=== PATIENT | male | born 2000 | race Caucasian/White ===

== ENCOUNTER 2018-12-26 22:58 | Day surgery (SDC) | payer OTHER ==
[2018-12-26] MEDS ORDERED: Sodium Chloride 0.9% 10 ML SDV IV PRN (23:10)
[2018-12-26] MEDS ORDERED: Sodium Chloride 0.9% 2.5 ML Syringe FLUSH PRN (23:10)
[2018-12-26] MEDS ORDERED: Sodium Chloride 0.9% 10 ML Syringe FLUSH PRN (23:10)
[2018-12-26] MEDS ORDERED: Lactated Ringers 1,000 ML IV ONE (23:13)
[2018-12-26] MEDS ORDERED: Lactated Ringers 1,000 ML IV SCH (23:15)
--- NOTE | 2018-12-26 23:24 | PCM.HP.2 ---
H&P History of Present Illness - General Date of Service: 12/26/18 Admit Problem/Dx: Admission Diagnosis/Problem Admission Diagnosis/Problem Appendicitis Source of Information: Patient History Limitations: Reports: No Limitations - History of Present Illness Initial Comments - Free Text/Narative: Patient is a 18 year old male who presents with acute appendicitis. He developed an "upset stomach" yesterday morning. This progressed and became more painful. He had nausea but no vomiting. He also endorsed chills. He presented to an OSH and was found to have a leukocytosis and CT scan showed acute appendicitis with errol-appendical inflammation. - Related Data Allergies/Adverse Reactions: Allergies Allergy/AdvReac Type Severity Reaction Status Date / Time ethinyl estradiol Allergy Other Verified 12/26/18 23:10 [From Seasonale ()] levonorgestrel Allergy Other Verified 12/26/18 23:10 [From Seasonale ()] Home Medications: Home Meds . [No Known Home Meds] 12/26/18 [History] Past Medical History - Past Health History Medical/Surgical History: Denies Medical/Surgical History Social & Family History - Family History Family Medical History: Noncontributory - Tobacco Use Smoking Status *Q: Never Smoker - Alcohol Use Alcohol Use History: Yes Alcohol Use Frequency: Rarely - Recreational Drug Use Recreational Drug Use: No H&P Review of Systems - Review of Systems: Review Of Systems: ROS reveals no pertinent complaints other than HPI. Exam - Exam Exam: See Below - Exam General: Alert, Oriented, Cooperative, Mild Distress HEENT: Conjunctiva Clear, Mucosa Moist & Vandiver, Posterior Pharynx Clear Neck: Supple Lungs: Clear to Auscultation, Normal Respiratory Effort Cardiovascular: Regular Rate, Regular Rhythm GI/Abdominal Exam: Soft, No Distention, No Mass, Tender (RLQ) Back Exam: Normal Inspection Extremities: Normal Inspection - Problem List (1) Acute appendicitis SNOMED Code(s): 51635942 ICD Code: K35.80 - UNSPECIFIED ACUTE APPENDICITIS Status: Acute Current Visit: Yes Problem List Initiated/Reviewed/Updated: Yes Orders Last 24hrs: Active Orders 24 hr Category Date Time Status Patient Status [ADT] Routine ADT 12/26/18 23:10 Ordered RT Incentive Spirometry [RC] Q1HWA Care 12/26/18 23:10 Ordered Up ad Haley [RC] ASDIRECTED Care 12/26/18 23:10 Ordered Vital Signs [RC] PER UNIT ROUTINE Care 12/26/18 23:10 Ordered Nothing Per Oral Diet [DIET] Diet 12/26/18 Dinner Ordered HYDROmorphone [Dilaudid] Med 12/26/18 23:12 Ordered 0.5 mg IV Q1H PRN Lactated Ringers [Ringers, Lactated] 1,000 ml Med 12/26/18 23:13 Ordered IV .BOLUS Lactated Ringers [Ringers, Lactated] 1,000 ml Med 12/26/18 23:15 Active IV ASDIRECTED Piperacillin/Tazobactam [Piperacil-Tazobact] 3.375 gm Med 12/26/18 23:15 Ordered Sodium Chloride 0.9% [Normal Saline] 50 ml IV Q6H Sodium Chloride 0.9% [Normal Saline] Med 12/26/18 23:10 Ordered 10 ml IV ASDIRECTED PRN Sodium Chloride 0.9% [Saline Flush] Med 12/26/18 23:10 Ordered 10 ml FLUSH ASDIRECTED PRN Sodium Chloride 0.9% [Saline Flush] Med 12/26/18 23:10 Ordered 2.5 ml FLUSH ASDIRECTED PRN Peripheral IV Insertion Adult [OM.PC] Urgent Oth 12/26/18 23:10 Ordered Resuscitation Status Routine Resus Stat 12/26/18 23:10 Ordered Medication Orders Hydromorphone HCl (Dilaudid) 0.5 mg IV Q1H PRN PRN Reason: Abdominal Pain Lactated Ringer's (Ringers, Lactated) 1,000 mls @ 125 mls/hr IV ASDIRECTED JUAN Last Admin: 12/26/18 23:07 Dose: 125 mls/hr Lactated Ringer's (Ringers, Lactated) 1,000 mls @ 1,000 mls/hr IV .BOLUS ONE Stop: 12/27/18 00:12 Sodium Chloride (Saline Flush) 10 ml FLUSH ASDIRECTED PRN PRN Reason: Keep Vein Open Sodium Chloride (Saline Flush) 2.5 ml FLUSH ASDIRECTED PRN PRN Reason: Keep Vein Open Sodium Chloride (Normal Saline) 10 ml IV ASDIRECTED PRN PRN Reason: IV Use Assessment/Plan Comment:: The patient his mother and I discussed the pathophysiology of acute appendicitis the treatment of which is appendectomy. I will attempt it laparoscopically but if I am unable to do this safely I will convert to open. We discussed the expected perioperative course as well as the risks including bleeding, infection, or damage to surrounding structures. The patient verbalized understanding and wishes to proceed.
[2018-12-26] MEDS: HYDROmorphone 1 MG/ML Syringe IV PRN (23:29)
[2018-12-26] MEDS: Piperacillin/Tazobactam 3.375 GM in Sodium Chloride 0.9% 50 ML IV SCH (23:32)
[2018-12-27] MEDS: HYDROmorphone 1 MG/ML Syringe IV PRN ×2 (03:25→07:02)
[2018-12-27] MEDS: Piperacillin/Tazobactam 3.375 GM in Sodium Chloride 0.9% 50 ML IV SCH (05:37)
[2018-12-27] MEDS ORDERED: Bupivacaine 0.5% 30 ML SDV ONE (07:33)
[2018-12-27] MEDS ORDERED: Ondansetron 4 MG/2 ML SDV ONE (07:50)
[2018-12-27] MEDS ORDERED: Rocuronium 100 MG/10 ML Syringe ONE (07:51)
[2018-12-27] MEDS ORDERED: Glycopyrrolate 0.2 MG/ML SDV ONE (07:51)
[2018-12-27] MEDS ORDERED: Midazolam 1 MG/ML 2 ML SDV ONE (07:51)
[2018-12-27] MEDS ORDERED: Propofol 200 MG/20 ML SDV ONE (07:51)
[2018-12-27] MEDS ORDERED: fentaNYL 100 MCG/2 ML SDV ONE ×2 (07:51→07:55)
[2018-12-27] MEDS ORDERED: Ketorolac 30 MG/ML SDV ONE (07:51)
[2018-12-27] MEDS ORDERED: Morphine 10 MG/ML Syringe ONE (07:52)
[2018-12-27] MEDS ORDERED: Sugammadex Sodium 200 MG/2 ML VIAL ONE (07:58)
--- NOTE | 2018-12-27 08:17 | PCM.PREANE ---
Preanesthetic Assessment - Anesthesia/Transfusion/Family Hx Anesthesia History: Prior Anesthesia Without Reaction Family History of Anesthesia Reaction: No Transfusion History: No Prior Transfusion(s) Intubation History: Unknown - Review of Systems General: No Symptoms Pulmonary: No Symptoms, Other (Exercise induced athma as youth. None now.) Cardiovascular: No Symptoms Gastrointestinal: No Symptoms Neurological: No Symptoms Other: Reports: None - Physical Assessment NPO Status Date: 12/12/18 NPO Status Time: 22:00 Vital Signs: Last Vital Signs Temp 36.6 C 12/27/18 07:10 Pulse 87 12/27/18 07:10 Resp 16 12/27/18 07:10 BP 131/69 12/27/18 07:10 Pulse Ox 97 12/27/18 07:10 Height: 1.78 m Weight: 96.162 kg Mental Status: Alert & Oriented x3 Dentition: Reports: Normal Dentition Thyro-Mental Finger Breadths: 3 Mouth Opening Finger Breadths: 3 ROM/Head Extension: Full Lungs: Clear to Auscultation Cardiovascular: Regular Rate - Allergies Allergies/Adverse Reactions: Allergies Allergy/AdvReac Type Severity Reaction Status Date / Time ethinyl estradiol Allergy Other Verified 12/26/18 23:10 [From e ()] levonorgestrel Allergy Other Verified 12/26/18 23:10 [From ()] - Blood Blood Available: No Product(s) Available: None - Anesthesia Plan Pre-Op Medication Ordered: None - Acknowledgements Anesthesia Type Planned: General Anesthesia Pt an Appropriate Candidate for the Planned Anesthesia: Yes Alternatives and Risks of Anesthesia Discussed w Pt/Guardian: Yes Pt/Guardian Understands and Agrees with Anesthesia Plan: Yes Additional Comments: Acceptable candidate for GAET Discussed. Accepts. PreAnesthesia Questionnaire - Past Health History Medical/Surgical History: Denies Medical/Surgical History - SUBSTANCE USE Smoking Status *Q: Never Smoker Recreational Drug Use History: No - HOME MEDS Home Medications: Home Meds . [No Known Home Meds] 12/26/18 [History] - CURRENT (IN HOUSE) MEDS Current Meds: Current Medications Hydromorphone HCl (Dilaudid) 0.5 mg IV Q1H PRN PRN Reason: Abdominal Pain Last Admin: 12/27/18 07:02 Dose: 0.5 mg Lactated Ringer's (Ringers, Lactated) 1,000 mls @ 125 mls/hr IV ASDIRECTED JUAN Last Admin: 12/26/18 23:07 Dose: 125 mls/hr Piperacillin Sod/Tazobactam (Sod 3.375 gm/ Sodium Chloride) 50 mls @ 100 mls/ hr IV Q6H [facility] Last Admin: 12/27/18 05:37 Dose: 100 mls/hr Sodium Chloride (Saline Flush) 10 ml FLUSH ASDIRECTED PRN PRN Reason: Keep Vein Open Sodium Chloride (Saline Flush) 2.5 ml FLUSH ASDIRECTED PRN PRN Reason: Keep Vein Open Sodium Chloride (Normal Saline) 10 ml IV ASDIRECTED PRN PRN Reason: IV Use Discontinued Medications Bupivacaine HCl (Marcaine 0.5%) Confirm Administered Dose 30 ml .ROUTE .STK-MED ONE Stop: 12/27/18 07:34 Fentanyl (Sublimaze) Confirm Administered Dose 100 mcg .ROUTE .STK-MED ONE Stop: 12/27/18 07:52 Fentanyl (Sublimaze) Confirm Administered Dose 100 mcg .ROUTE .STK-MED ONE Stop: 12/27/18 07:56 Glycopyrrolate (Robinul) Confirm Administered Dose 0.2 mg .ROUTE .STK-MED ONE Stop: 12/27/18 07:52 Lactated Ringer's (Ringers, Lactated) 1,000 mls @ 1,000 mls/hr IV .BOLUS ONE Stop: 12/27/18 00:12 Last Admin: 12/26/18 23:32 Dose: 1,000 mls/hr Acetaminophen (Ofirmev) Confirm Administered Dose 100 mls @ as directed IV .STK- MED ONE Stop: 12/27/18 07:59 Ketorolac Tromethamine (Toradol) Confirm Administered Dose 30 mg .ROUTE .STK- MED ONE Stop: 12/27/18 07:52 Midazolam HCl (Versed 1 Mg/Ml) Confirm Administered Dose 2 mg .ROUTE .STK-MED ONE Stop: 12/27/18 07:52 Morphine Sulfate (Morphine) Confirm Administered Dose 10 mg .ROUTE .STK-MED ONE Stop: 12/27/18 07:53 Ondansetron HCl (Zofran) Confirm Administered Dose 4 mg .ROUTE .STK-MED ONE Stop: 12/27/18 07:51 Propofol (Diprivan 20 Ml) Confirm Administered Dose 400 mg .ROUTE .STK-MED ONE Stop: 12/27/18 07:52 Rocuronium [place] (Zemuron) Confirm Administered Dose 100 mg .ROUTE .STK-MED ONE Stop: 12/27/18 07:52 Sugammadex Sodium (Bridion) Confirm Administered Dose 200 mg .ROUTE .STK-MED ONE Stop: 12/27/18 07:59
[2018-12-27] MEDS ORDERED: Morphine 4 MG/ML Syringe IVPUSH ONE (09:00)
--- NOTE | 2018-12-27 09:46 | PCM.OPNOTE ---
- General Post-Op/Procedure Note Date of Surgery/Procedure: 12/27/18 Operative Procedure(s): Laparoscopic appendectomy Findings: Enlarged and inflamed appendix with no evidence of rupture Pre Op Diagnosis: Appendicitis Post-Op Diagnosis: same Anesthesia Technique: General ET Tube Primary Surgeon: Jessica Davenport Pathology: appendix Fluid Replacement, Intraop: 1,400 Output, Urine Amount: 500 EBL in mLs: 5 Condition: Good Free Text/Narrative:: Intake & Output 12/26/18 12/27/18 12/27/18 22:59 06:59 14:59 Intake Total 1375 Output Total 400 Balance 975
--- NOTE | 2018-12-27 09:55 | PCM.POSTAN ---
POST ANESTHESIA ASSESSMENT - MENTAL STATUS Mental Status: Alert - VITAL SIGNS Vital Signs: Last Vital Signs Temp 36 C 12/27/18 09:37 Pulse 67 12/27/18 09:42 Resp 12 12/27/18 09:42 BP 120/74 12/27/18 09:42 Pulse Ox 97 12/27/18 09:42 - RESPIRATORY Respiratory Status: Respiratory Rate WNL - CARDIOVASCULAR CV Status: Pulse Rate WNL - GASTROINTESTINAL GI Status: No Symptoms - PAIN Pain Score: 2 (More with movement.) - POST OP HYDRATION Hydration Status: Adequate & Stable - OBSERVATIONS Free Text/Narrative:: Doing well. Ready for discharge to floor.
[2018-12-27] MEDS: Acetaminophen/HYDROcodone 325-5 MG Tab PO PRN ×2 (10:55→16:58)
--- NOTE | 2018-12-27 11:04 | OR ---
SURGEON: JESSICA DAVENPORT MD DATE OF PROCEDURE: 12/26/2018 PREOPERATIVE DIAGNOSIS: Acute appendicitis. POSTOPERATIVE DIAGNOSIS: Acute appendicitis. PROCEDURE PERFORMED: Laparoscopic appendectomy. PRIMARY SURGEON: Jessica Davenport MD. ANESTHESIA: General endotracheal anesthesia. FLUIDS: 1400 mL crystalloid. ESTIMATED BLOOD LOSS: 5 mL. URINE OUTPUT: 500 mL. FINDINGS: Acutely inflamed and enlarged appendix with no evidence of rupture. COMPLICATIONS: None. INDICATIONS: The patient is a 18-year-old male who presents with one-day history of abdominal pain. Workup at an outside hospital revealed acute appendicitis. I explained the pathophysiology of appendicitis and the need for an appendectomy. I would attempt it laparoscopically, but should I be unable to perform it safely, I would convert to open. I explained the procedure; expected perioperative course; and risks including bleeding, infection, or damage to surrounding structures. The patient verbalized understanding and wishes to proceed. PROCEDURE IN DETAIL: The patient was brought into the OR and placed on the OR table in supine position. A time-out was completed verifying the patient's name, age, date of , allergies, and procedure to be performed. General endotracheal anesthesia was induced. A Goncalves catheter was placed in the left arm, was tucked to the patient's side. The abdomen was prepped and draped in usual standard fashion. I anesthetized an area two fingerbreadths below the left subcostal margin along the midclavicular line with 0.5% Marcaine plain. An 11 blade was used to make 1 cm incision in the left upper quadrant. A 5 mm optical trocar was used to gain entry into the left upper quadrant. All layers of the abdominal wall were visualized upon entry. The abdomen was insufflated and a 5 mm 30-degree scope was inserted. I inspected the area underneath my initial trocar placement. No damage to surrounding structures was noted. A 5 mm trocar was placed just left and lateral of the umbilicus and a 12 mm trocar was placed in the left lower quadrant under direct visualization as well. The patient was placed into Trendelenburg position and airplaned slightly to the left. I turned my attention to the right lower quadrant. I identified the cecum and followed it down to the base of the appendix. The preoperative CT showed that the appendix looped medially and underneath the small bowel. The small bowel was sucked into the upper quadrant, and I immediately identified an enlarged and inflamed appendix. The tip of the appendix was located medially. I grabbed this and elevated it. There was a small amount of fibrinous exudate around the appendix, but it did not appear to be ruptured. I swept away the attachments of the appendix to the surrounding small bowel and mesentery from distal to proximal. I then identified the base of my appendix. Once the appendiceal mesentery was completely free of surrounding structures, I brought a Harmonic scalpel device in and took down the appendiceal mesentery along the body of the appendix from distal to proximal. At the base of the appendix, the patient had some retroperitoneal attachments. These were taken down using blunt dissection of the Harmonic scalpel device. Once the appendix was completely freed, and I could see where it inserted clearly on the cecum, an endoscopic stapling device was brought into the field. I stapled and transected across the base of the appendix using a 45 mm blue load of corinne. The appendix was then placed in an Endo Catch bag and removed through the 12 mm port site. I inspected my operative field. The staple line appeared to be intact and the operative field was hemostatic. I irrigated the area with 500 mL of normal saline and suctioned it out. The 12 mm trocar was then removed, and I closed the fascia at the site with using an interrupted 0 Vicryl suture using a Yared-Bryn device. The patient was flattened, and I suctioned any extra fluid out of the abdomen. The 5 mm trocars were then removed under direct visualization and the abdomen allowed to desufflate. The 12 mm trocar site was closed with interrupted 3-0 Vicryl sutures in the subcutaneous fat layer and the skin was closed with a running 4-0 Monocryl stitch. The 5 mm trocar sites were closed with interrupted 4-0 Monocryl sutures. Steri-Strips and sterile dressings were applied. All counts were complete and correct at the end of the case. The patient was extubated and taken to the PACU in stable condition. EDDA SIFUENTES /[id number]
--- NOTE | 2018-12-27 15:30 | PCM48HPAN ---
Post Anesthesia Note - EVALUATION WITHIN 48HRS OF ANESTHETIC Vital Signs in Normal Range: Yes Patient Participated in Evaluation: Yes Respiratory Function Stable: Yes Airway Patent: Yes Cardiovascular Function Stable: Yes Hydration Status Stable: Yes Pain Control Satisfactory: Yes (Some soreness) Nausea and Vomiting Control Satisfactory: Yes Mental Status Recovered: Yes Vital Signs: Last Vital Signs Temp 36.6 C 12/27/18 14:00 Pulse 80 12/27/18 14:00 Resp 16 12/27/18 14:00 BP 114/66 12/27/18 14:00 Pulse Ox 96 12/27/18 14:00 - COMMENTS/OBSERVATIONS Free Text/Narrative:: Doing well. Ready for discharge. No problems notes.
--- NOTE | 2018-12-27 18:23 | PCM.SURGPN ---
- General Info Date of Service: 12/27/18 Date of Surgery/Procedure: 12/27/18 POD#: 0 Functional Status: Reports: Pain Controlled, Tolerating Diet, Ambulating, Urinating. Denies: New Symptoms - Review of Systems General: Reports: No Symptoms HEENT: Reports: No Symptoms Pulmonary: Reports: No Symptoms Cardiovascular: Reports: No Symptoms Gastrointestinal: Reports: No Symptoms Genitourinary: Reports: No Symptoms - Patient Data Vitals - Most Recent: Last Vital Signs Temp 36.4 C 12/27/18 16:30 Pulse 70 12/27/18 16:30 Resp 18 12/27/18 16:30 BP 111/65 12/27/18 16:30 Pulse Ox 96 12/27/18 16:30 Weight - Most Recent: 96.162 kg I&O - Last 24 Hours: Intake & Output 12/27/18 12/27/18 12/27/18 06:59 14:59 22:59 Intake Total 1375 2900 1800 Output Total 400 1000 1350 Balance 975 1900 450 Med Orders - Current: Current Medications Hydrocodone Bitart/Acetaminophen (Limon 325-5 Mg) 2 tab PO Q4H PRN PRN Reason: Abdominal Pain Last Admin: 12/27/18 16:58 Dose: 2 tab Hydromorphone HCl (Dilaudid) 0.5 mg IV Q1H PRN PRN Reason: Abdominal Pain Last Admin: 12/27/18 07:02 Dose: 0.5 mg Sodium Chloride (Saline Flush) 10 ml FLUSH ASDIRECTED PRN PRN Reason: Keep Vein Open Sodium Chloride (Saline Flush) 2.5 ml FLUSH ASDIRECTED PRN PRN Reason: Keep Vein Open Sodium Chloride (Normal Saline) 10 ml IV ASDIRECTED PRN PRN Reason: IV Use Discontinued Medications Bupivacaine HCl (Marcaine 0.5%) Confirm Administered Dose 30 ml .ROUTE .STK-MED ONE Stop: 12/27/18 07:34 Fentanyl (Sublimaze) Confirm Administered Dose 100 mcg .ROUTE .STK-MED ONE Stop: 12/27/18 07:52 Fentanyl (Sublimaze) Confirm Administered Dose 100 mcg .ROUTE .STK-MED ONE Stop: 12/27/18 07:56 Glycopyrrolate (Robinul) Confirm Administered Dose 0.2 mg .ROUTE .STK-MED ONE Stop: 12/27/18 07:52 Lactated Ringer's (Ringers, Lactated) 1,000 mls @ 125 mls/hr IV ASDIRECTED [facility] Last Admin: 12/26/18 23:07 Dose: 125 mls/hr Lactated Ringer's (Ringers, Lactated) 1,000 mls @ 1,000 mls/hr IV .BOLUS ONE Stop: 12/27/18 00:12 Last Admin: 12/26/18 23:32 Dose: 1,000 mls/hr Piperacillin Sod/Tazobactam (Sod 3.375 gm/ Sodium Chloride) 50 mls @ 100 mls/ hr IV Q6H [facility] Last Admin: 12/27/18 05:37 Dose: 100 mls/hr Acetaminophen (Ofirmev) Confirm Administered Dose 100 mls @ as directed IV .STK- MED ONE Stop: 12/27/18 07:59 Ketorolac Tromethamine (Toradol) Confirm Administered Dose 30 mg .ROUTE .STK- MED ONE Stop: 12/27/18 07:52 Midazolam HCl (Versed 1 Mg/Ml) Confirm Administered Dose 2 mg .ROUTE .STK-MED ONE Stop: 12/27/18 07:52 Morphine Sulfate (Morphine) Confirm Administered Dose 10 mg .ROUTE .STK-MED ONE Stop: 12/27/18 07:53 Morphine Sulfate (Morphine) 4 mg IVPUSH ONETIME ONE Stop: 12/27/18 09:01 Last Admin: 12/27/18 10:20 Dose: Not Given Ondansetron HCl (Zofran) Confirm Administered Dose 4 mg .ROUTE .STK-MED ONE Stop: 12/27/18 07:51 Propofol (Diprivan 20 Ml) Confirm Administered Dose 400 mg .ROUTE .STK-MED ONE Stop: 12/27/18 07:52 Rocuronium [place] (Zemuron) Confirm Administered Dose 100 mg .ROUTE .STK-MED ONE Stop: 12/27/18 07:52 Sugammadex Sodium (Bridion) Confirm Administered Dose 200 mg .ROUTE .STK-MED ONE Stop: 12/27/18 07:59 - Exam Wound/Incisions: Healing Well, Dressing Dry and Intact General: Alert, Oriented, Cooperative Lungs: Normal Respiratory Effort Cardiovascular: Regular Rhythm GI/Abdominal Exam: Soft, Non-Tender, No Distention, No Mass - Problem List & Annotations (1) Acute appendicitis SNOMED Code(s): 89060137 Code(s): K35.80 - UNSPECIFIED ACUTE APPENDICITIS Status: Acute Current Visit: Yes - Problem List Review Problem List Initiated/Reviewed/Updated: Yes - My Orders Last 24 Hours: Active Orders 24 hr Category Date Time Status Patient Status [ADT] Routine ADT 12/26/18 23:10 Active RT Incentive Spirometry [RC] Q1HWA Care 12/26/18 23:10 Active Up ad Haley [RC] ASDIRECTED Care 12/26/18 23:10 Active Vital Signs [RC] Q4H Care 12/26/18 23:10 Active Regular Diet [DIET] Diet 12/27/18 Lunch Active Acetaminophen/HYDROcodone [Limon 325-5 MG] Med 12/27/18 09:48 Active 2 tab PO Q4H PRN HYDROmorphone [Dilaudid] Med 12/26/18 23:12 Active 0.5 mg IV Q1H PRN Sodium Chloride 0.9% [Normal Saline] Med 12/26/18 23:10 Active 10 ml IV ASDIRECTED PRN Sodium Chloride 0.9% [Saline Flush] Med 12/26/18 23:10 Active 10 ml FLUSH ASDIRECTED PRN Sodium Chloride 0.9% [Saline Flush] Med 12/26/18 23:10 Active 2.5 ml FLUSH ASDIRECTED PRN Peripheral IV Insertion Adult [OM.PC] Urgent Oth 12/26/18 23:10 Ordered Resuscitation Status Routine Resus Stat 12/26/18 23:10 Ordered Medication Orders Hydrocodone Bitart/Acetaminophen (Limon 325-5 Mg) 2 tab PO Q4H PRN PRN Reason: Abdominal Pain Last Admin: 12/27/18 16:58 Dose: 2 tab Admin: 12/27/18 10:55 Dose: 2 tab Hydromorphone HCl (Dilaudid) 0.5 mg IV Q1H PRN PRN Reason: Abdominal Pain Last Admin: 12/27/18 07:02 Dose: 0.5 mg Admin: 12/27/18 03:25 Dose: 0.5 mg Admin: 12/26/18 23:29 Dose: 0.5 mg Sodium Chloride (Saline Flush) 10 ml FLUSH ASDIRECTED PRN PRN Reason: Keep Vein Open Sodium Chloride (Saline Flush) 2.5 ml FLUSH ASDIRECTED PRN PRN Reason: Keep Vein Open Sodium Chloride (Normal Saline) 10 ml IV ASDIRECTED PRN PRN Reason: IV Use - Plan Plan (Free Text/Narrative):: Patients pain is well controlled. His vitals are stable. His abdomen is soft and nontender. He is tolerating a regular diet. He can be discharged home.
== END 2018-12-27 19:55 | disposition home or self-care (01) ==
LOC: MW.SDS 22:58 → MW.MS 23:00 → MW.SDS 12-27 19:55
PROVIDERS: ATTEND Surgery
DX: K35.80 Unspecified acute appendicitis (principal); Z88.8 Allergy status to other drugs, medicaments and biological substances
CPT/HCPCS: 44970; J1170; J2543; J7050; J7120; 88304